=== PATIENT | female | born 2000 | race Caucasian/White ===

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

== ENCOUNTER 2020-01-23 21:53 | Emergency (ER) | payer OTHER ==
[2020-01-23 22:05] VITALS: BP 122/83; PULSE 85; RESP 20; TEMP 98.1
--- NOTE | 2020-01-23 22:07 | ED ---
Skin/Abscess/FB HPI - General Stated complaint: Rash Time Seen by Provider: 01/23/20 22:04 - History of Present Illness Initial comments: 19-year-old female patient presents to the emergency department today for evaluation of rash to the bilateral arms. Patient states she feels like these are hives. States they've been present since earlier today. She is concerned she may be having a breakout from her laundry detergent however her boyfriend does have bedbugs. She states that the areas are very itchy. Denies any burning or pain. Denies throat swelling or closure. Denies any lip or tongue swelling. Denies any trouble breathing. Denies taking any medication for her symptoms. Denies any other symptoms or concerns. - Related Data Previous Rx's Medication Instructions Recorded Escitalopram [Lexapro] 5 mg PO DAILY 30 Days #30 tab 10/01/19 Famotidine [Pepcid] 20 mg PO DAILY #3 tablet 01/23/20 Hydrocortisone Cream 1 applic TOPICAL TID PRN #15 gm 01/23/20 [Hydrocortisone 1% Cream] diphenhydrAMINE HCL [Benadryl] 25 mg PO Q6H #12 tab 01/23/20 predniSONE 50 mg PO DAILY #3 tab 01/23/20 Allergies Allergy/AdvReac Type Severity Reaction Status Date / Time Penicillins Allergy Rash/Hives Verified 09/29/19 03:40 Review of Systems ROS Statement: Those systems with pertinent positive or pertinent negative responses have been documented in the HPI. ROS Other: All systems not noted in ROS Statement are negative. Past Medical History Past Medical History: No Reported History Additional Past Medical History / Comment(s): History of giant cell tumor History of Any Multi-Drug Resistant Organisms: None Reported Additional Past Surgical History / Comment(s): mass removed from chest, Past Anesthesia/Blood Transfusion Reactions: No Reported Reaction Past Psychological History: Depression Smoking Status: Never smoker Past Alcohol Use History: Occasional Past Drug Use History: Marijuana - Past Family History Father Family Medical History: No Reported History Mother Family Medical History: No Reported History General Exam General appearance: alert, in no apparent distress, other (This is a well- developed, well-nourished adult female patient in no acute distress. Vital signs upon presentation are temperature 98.1F, pulse 85, respirations 20, blood pressure 122/83, pulse ox 100% on room air.) Eye exam: Present: normal appearance, PERRL, EOMI. Absent: scleral icterus, conjunctival injection, periorbital swelling ENT exam: Present: normal exam, normal oropharynx, mucous membranes moist Respiratory exam: Present: normal lung sounds bilaterally. Absent: respiratory distress, wheezes, rales, rhonchi, stridor Cardiovascular Exam: Present: regular rate, normal rhythm, normal heart sounds. Absent: systolic murmur, diastolic murmur, rubs, gallop, clicks Neurological exam: Present: alert, oriented X3, CN II-XII intact Psychiatric exam: Present: normal affect, normal mood Skin exam: Present: warm, dry, intact, normal color, rash (There are urticarial type rash noted to the bilateral arms. These areas are erythematous. Lesions are non-petechial, nonvesicular. No drainage or signs of secondary infection.) Course Vital Signs 01/23/20 22:03 Temperature 98.1 F Pulse Rate 85 Respiratory 20 Rate Blood Pressure 122/83 O2 Sat by Pulse 100 Oximetry Medical Decision Making - Medical Decision Making 19-year-old female patient presented to the emergency department today for evaluation of rash to the bilateral arms. Physical examination does reveal an urticarial type rash. Patient believes this may be related to her laundry detergent. She'll be started on Pepcid, Benadryl, steroids. She is given hydrocortisone cream to apply over the lesions. She is instructed not to apply this to her face, neck, or genitalia. She is instructed to follow-up with her primary care physician for recheck in 1-2 days. Return parameters were discussed in detail. She verbalizes understanding and agrees with this plan. Disposition Clinical Impression: Urticaria Disposition: HOME SELF-CARE Condition: Good Instructions (If sedation given, give patient instructions): Urticaria (ED) Additional Instructions: Take medications as directed. Follow-up with your primary care physician for recheck in 1-2 days. Return to the emergency department immediately for any new, worsening, or concerning symptoms. Prescriptions: diphenhydrAMINE HCL [Benadryl] 25 mg PO Q6H #12 tab Hydrocortisone Cream [Hydrocortisone 1% Cream] 1 applic TOPICAL TID PRN #15 gm PRN Reason: Itching Famotidine [Pepcid] 20 mg PO DAILY #3 tablet predniSONE 50 mg PO DAILY #3 tab Is patient prescribed a controlled substance at d/c from ED?: No Referrals: None,Stated [Primary Care Provider] - 1-2 days Time of Disposition: 22:07
== END 2020-01-23 22:15 | disposition home or self-care (01) ==
LOC: EC 21:53
DX: L50.9 Urticaria, unspecified (principal); Z88.0 Allergy status to penicillin
CPT/HCPCS: 99282